=== PATIENT | female | born 1945 | race Caucasian/White ===

== ENCOUNTER 2018-08-09 09:14 | Emergency (ER) | payer MEDICAID ==
[~2018-08-09] VITALS: Ht 160 cm; Wt 68.0 kg
[2018-08-09 09:24] VITALS: Ht 160 cm; Wt 68.0 kg
[2018-08-09 10:42] LABS: BASOPHIL % 0.4 % (0-2); PLATELET COUNT 306 x10^3mcL (130-400); RED CELL DISTRIBUTION WIDTH 13.6 % (11.5-14.5)
[2018-08-09 10:45] LABS: microscopic required? NO
[2018-08-09 10:50] LABS: CALCIUM 8.6 mg/dL (8.5-10.1); CARBON DIOXIDE 33.5 mmol/L (21-32); CHLORIDE SERUM 105 mmol/L (98-107); CREATININE SERUM 0.9 mg/dL (0.6-1.0); GLUCOSE SERUM 100 mg/dL (74-106); POTASSIUM SERUM 4.4 mmol/L (3.5-5.1); SODIUM SERUM 141 mmol/L (136-145)
[2018-08-09 10:55] LABS: urine erythrocyte NEGATIVE (NEGATIVE)
[2018-08-09 11:03] LABS: ALKALINE PHOSPHATASE 67 U/L (46-116); ALT/SGPT 20 U/L (14-59); AST/SGOT 21 U/L (15-37); BILIRUBIN TOTAL 0.49 mg/dL (0.20-1.00); TOTAL PROTEIN, SERUM 7.8 g/dL (6.4-8.2)
[2018-08-09 11:04] LABS: ALBUMIN 3.3 g/dL (3.4-5.0)
[2018-08-09 12:05] VITALS: BP 155/65
== END 2018-08-09 11:20 | disposition home or self-care (01) ==
LOC: ED 09:14
PROVIDERS: Emergency Medicine
DX: I10 Essential (primary) hypertension (principal); G47.00 Insomnia, unspecified; R45.1 Restlessness and agitation; G30.9 Alzheimer's disease, unspecified; F02.80 Dementia in other diseases classified elsewhere, unspecified severity, without behavioral disturbance, psychotic disturbance, mood disturbance, and anxiety
CPT/HCPCS: 36415; Q0092